=== PATIENT | male | born 1985 ===

== ENCOUNTER 2018-06-06 06:32 | Day surgery (SDC) | payer BC ==
--- NOTE | 2018-06-05 22:46 | PDGENHP ---
History and Physical - Chief Complaint RIGHT HIP PAIN - History of Present Illness 1. Bilateral~Femoroacetabular impingement (TYRELL) Cam type,~with~resultant labral tear(R>L) 2. Bilateral~Borderline Hip Dyplasia 3. 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 I have enjoyed meeting him.~Davina~lives in [place].~~[employer] as a financial services internship.~~He~is single;~davina~has no~children. ~Ritoenjoys hiking, tennis, backpacking and running. Tanmay's~bilateral~hip pain started a year ago, with~no~recalled trauma or injury , and with no~previous complaints. Ritohas~a known history of hip dysplasia. Presentation today is of~anterior,~groin~bilateral~hip pain(R>L). ~The hip~does not~wake him~at night and does~click and catch on him. Sitting~can be uncomfortable~for him.~Ritodoes~report suffering from lower back pain episodes. Ritohas~participated in physical therapy and has not~tried other conservative measures including chiropractic treatments and massage therapy.~Davina~has not~ received sufficient symptomatic improvement. Ritohas~utilized medication for pain management, including NSAID.~Ritohas used medication for 6~months. Ritounderstands that he~has a hip and pelvis problem which should be researched and wishes to get a better understanding of his~hip status, followed by an establishment of a treatment strategy, hoping he~would be able to get back to his~well being active life. History: Past medical history:~~ None which is relevant~ Relevant familial history:~None which is relevant~ Past surgical history:~ Jaw surgery Ritodenies problematic issues with general anesthesia in the past. I have reviewed, verified and agree with the past medical, surgical, family and social history. Current Medications:~has a current medication list which includes the following prescription(s): levothyroxine and multivitamin. ALLERGIES:~has No Known Allergies. Objective: Physical Examination: Ritois 6~feet 0~inches tall and weighs 185~Lbs. Tanmay~is AAO x3; he~is well- nourished, in NAD. Skin is warm and dry. ~Breathing is non-labored. ~CV with RRR by pulse. Abdomen is soft, NTND. Currently,~davina~walks with a normal~gait. Trendelenburg sign is~negative~and proprioception is reduced,~both~sides. He~presents with mild~signs of joint laxity. Beightons Score:~2 He~is fit looking. ~~ Lower spine examination is~negative~for sciatic or femoral nerve irritation with negative~SLR &~femoral stretch tests. Range of motion of the spine is normal~for flexion, extension, and rotations, with no~associated pain. Strength, Sensation and pulses are~normal -~bilaterally Ankles and knees exams are~normal~and no~mal-alignment is evident. He~has no leg length discrepancy. Thigh circumference is~symmetric~with no evidence for muscle atrophy~on both~ sides. Hip ROM (degrees): FL ER At 90~hip FL IR At 90~hip FL AB AD EX IR Neutral hip ER Neutral hip R 105 50 15 35 15 5 30 45 L 105 55 10 35 5 5 30 45 Specific hip and pelvis tests: Quadrant NAHUN Roll Add. Longus R +++ +++ Negative +++ L +++ +++ Negative + Glut. Med ITB Pos. Imp R Negative 5/5 strength Negative 5/5 strength Negative L Negative 5/5 strength Negative 5/5 strength Negative Squeeze test measured~normal Bony Symphysis pubis is~pain free~to touch while concentric activity of the rectus abdominis, does not~produce pain at its insertion. Ilio Psos specific tests are~negative for pain during cycling for~both hips~and remarkable for no snap. HF has~no pain on~~both hips. Anterior and lateral~capsule tenderness on both sides. Greater trochanteric burse is~pain free~on both hips. Piriformis tests: FAIR is~negative,~with no~local signs of neuritis related to sciatic nerve. SIJs examination is~normal~with normal~NAHNU in relation and local tenderness. Hamstrings tests are~negative~functional contraction and negative~tendinopathy both hips. On a daily basis, the following percentages reflect~Tanmay's overall total pain: Deep hip:~100% Imaging: Radiology studies which I have personally reviewed, analyzed and measured are below: XR: AP of the hip and pelvis: Performed in a~good~technique Coccyx to pubic symphysis distance~2~cm. 8~degrees caudal. [place] Lines are~preserved. No~Pathological signs are seen in the Symphysis Pubis. No~Pathological signs are seen at the Ischial tuberosity. ~ Specific measurements show: NSA~ LCE Sourcil~Angle Sharp's angle Lat. Cam Lat. Pincer C.Over~sign Head~Coverage % ATDmm R N 25 12 41 + - 12-1.00 81 N L N 24 10 39 + - 12-1.00 78 N Pos. wall sign ISS NAD ~~Dysplasia Comments R ++ Negative 10.5~mm + L ++ Negative 9.5~mm + Sclerosis Sup. Lat. OA Cysts Joint Space-WBZ Joint Space-Medial R Negative + Negative 6~mm 4.2~mm L Negative + Negative 6.7~mm 4~mm X Table lateral: Anterior cam lesion is~seen~on both hips. Alpha Angle: ~ Right~78~dergrees Left~79~degrees MRI - Good cartilage status, large labral tears both sides with para labral cyst. CT: Right hip: Lateral center edge angle: 25 degrees Anterior center edge angle: 52 degrees Equatorial acetabular version angle: 16 degrees anteverted. Cranial acetabular version angle: 0 degrees. Femoral neck shaft angle: 136 degrees Femoral neck version angle: 21 degrees anteverted. Right femoral torsion measures 11 degrees. Left hip: Lateral center edge angle: 23 degrees Anterior center edge angle: 59 degrees Equatorial acetabular version angle: 12 degrees anteverted. Cranial acetabular version angle: 6 degrees anteverted. Femoral neck shaft angle: 133 degrees Femoral neck version angle: 13 degrees anteverted. Left femoral torsion measures 0 degrees. Impression and plan:Sly Verasis a 32 y.o.~active male~suffering from symptomatic bilateral~hip pain due to ~Femoroacetabular impingement (TYRELL) Cam type,~with~resultant labral tear, ~Borderline Hip Dyplasia and Femoral Retrotorsion(Clinical)~causing significant disability to~him~and altering his~sport and life activities. Physical examination, imaging, and~his~story correspond with the diagnosis mentioned above. I explained that femoroacetabular impingement (TYRELL - Cam type) arises due to a bony or soft tissue conflict between the femur (ball) and acetabulum (socket) caused by an abnormality in the shape of the femoral head and neck. Over time, repetitive impingement can result in damage to the labrum and adjacent surface cartilage within the socket, ultimately giving rise to progressive osteoarthritis of the hip. I explained that hip dysplasia is a condition wherein the hip joint has excessive play~and instability due to a variety of factors, including the depth and adequacy of the socket, the orientation of the femur bone, and ligament laxity around the hip joint. Dysplasia ranges in severity from borderline to almas, with treatment options being specific to the specific nature of the problem. Left untreated, the instability in the hip joint can cause progressive tearing of the labrum and deterioration of the surface cartilage, ultimately resulting in progressive osteoarthritis of the hip. I explained that although a labral tear can be a source of pain, it is rarely the root of the problem and typically occurs secondary to an underlying abnormality in the shape and mechanics of the hip joint. I reviewed conservative treatment options for Dysplasia and TYRELL including activity modification to avoid positions of impingement or instability, physical therapy, non-steroidal anti-inflammatory medications, and various injections (corticosteroid and PRP) aimed at reducing inflammation in the hip joint or/and preventing dynamic instability and impingement. PRP injections may promote healing and reduce symptoms in certain cases but it will not repair chronically damaged tissue. Although these measures may help to buy time~and reduce current level of symptoms, they are not a definitive solution to the problem given the underlying abnormality in the shape of the hip joint. Patients who have failed conservative management and continue to experience symptoms are candidates for definitive surgical treatment, which may consist of hip arthroscopy alone or in combination with more invasive bony realignment procedures of the hip socket and/or femur called periacetabular osteotomy (NINI) or derotational femoral osteotomy (DFO). Hip arthroscopy typically includes treating the labrum with either repair or reconstruction of the torn labrum; as well as addressing the underlying abnormalities by restoring the normal shape to the hip joint. If the cartilage is damaged a Microfracture surgical procedure may also be necessary to help stimulate the growth of fibrocartilage. If a patient requires a labral reconstruction or a Microfracture, the initial rehabilitation from the surgery may take longer, but the director of strategic initiatives results are typically favorable. Tanmay~will review the info presented. Based on the available information~(MRI he has had recently and CT), Tanmay most likely will do well with hip arthroscopy alone. NINI would not be the first line of treatment in his case, being a male with no tissue laxity, relative retro-torsion of femur and LCE angles on the verge of normal values. I also talked about possible simultaneous bilateral hip arthroscopy. In order to obtain more detailed information regarding the alignment, orientation, and shape of the bony hip and pelvis I will order a CT scan to be performed. The results of the CT scan, including femoral torsion and acetabular version measured values and 3D images, will aid me in deciding on the best treatment strategy and surgical pre-planning. Tanmay~is going to contact us after completing his~imaging studies.~He is also going to work on getting the MRI CD to us. Tanmay~is happy with this plan. I have also supplied~him~with handouts~with our web site details and our contact info. I wish~Tanmay~all the best, ~~ Pawan Olsen MD History Information - Allergies/Home Medication List Allergies/Adverse Reactions: No Known Allergies Allergy (Verified 05/26/18 16:36) Home Medications: Adult One Daily Multivit Tab 05/26/18 [Last Taken Unknown] Levothyroxine [Synthroid 50 mcg (*)] 05/26/18 [Last Taken Unknown] valACYclovir PRN 05/26/18 [Last Taken Unknown] I have personally reviewed and updated: medical history - Social History Smoking Status: Former smoker Review of Systems Review of Systems: Physical Exam Physical Exam:
[2018-06-06] MEDS ORDERED: PREGABALIN 150 MG CAP PO ONE (07:08)
[2018-06-06] MEDS ORDERED: ceFAZolin 2 GM/DEXTROSE 100 ML IV ONE (07:08)
[2018-06-06] MEDS ORDERED: ACETAMINOPHEN 500 MG TAB PO ONE (07:08)
[2018-06-06] MEDS ORDERED: LIDOCAINE 1% 2 ML INJ ID PRN (07:22)
[2018-06-06] MEDS ORDERED: LR 1,000 ML IV ONE (07:22)
[2018-06-06] MEDS ORDERED: EPINEPHrine 30 MG/30 ML MDV (0.1 MG/0.1 ML) ONE (08:22)
[2018-06-06] MEDS ORDERED: BUPIVACAINE/EPI 0.25% 30 ML SDV ONE (08:22)
[2018-06-06] MEDS ORDERED: NALOXONE HCL 0.4 MG/ML INJ IVP PRN ×2 (09:01→15:15)
[2018-06-06] MEDS ORDERED: PROMETHAZINE HCL 25 MG/ML INJ IVP PRN ×2 (09:01→15:15)
[2018-06-06] MEDS ORDERED: ALBUTEROL 3 ML DEYVIAL IH PRN ×2 (09:01→15:15)
[2018-06-06] MEDS ORDERED: ONDANSETRON 4 MG/2 ML VIAL IVP PRN ×2 (09:01→15:15)
[2018-06-06] MEDS ORDERED: HYDROmorphONE/DILAUDID 2 MG/ML INJ IVP PRN ×2 (09:01→15:15)
[2018-06-06] MEDS ORDERED: HYDROCODONE/APAP 5/325 TAB PO PRN (09:01)
--- NOTE | 2018-06-06 09:03 | PDANEPAE ---
ANE History of Present Illness R Hip ANE Past Medical History - Cardiovascular History Hx Hypertension: No Hx Arrhythmias: No Hx Chest Pain: No Hx Coronary Artery / Peripheral Vascular Disease: No Hx CHF / Valvular Disease: No Hx Palpitations: No - Pulmonary History Hx COPD: No Hx Asthma/Reactive Airway Disease: No Hx Recent Upper Respiratory Infection: No Hx Oxygen in Use at Home: No Hx Sleep Apnea: No Sleep Apnea Screening Result - Last Documented: Negative - Neurologic History Hx Cerebrovascular Accident: No Hx Seizures: No Hx Dementia: No - Endocrine History Hx Diabetes: Yes Endocrine History Comment: hypothyroid - Renal History Hx Renal Disorders: No - Liver History Hx Hepatic Disorders: No - Neurological & Psychiatric Hx Hx Neurological and Psychiatric Disorders: No - Cancer History Hx Cancer: No - Congenital Disorder History Hx Congenital Disorders: No - GI History Hx Gastrointestinal Disorders: No - Other Health History Other Health History: wears glasses/contacts - Chronic Pain History Chronic Pain: No - Surgical History Prior Surgeries: left hip arthroscopy femoplasty 2017. jaw surgery, age 17 ANE Review of Systems Review of Systems: - Exercise capacity METS (RN): 6 METS ANE Patient History - Allergies Allergies/Adverse Reactions: No Known Allergies Allergy (Verified 05/26/18 16:36) - Home Medications Home Medications: Adult One Daily Multivit Tab 05/26/18 [Last Taken 05/27/18] Levothyroxine [Synthroid 50 mcg (*)] 05/26/18 [Last Taken 06/04/18] valACYclovir PRN 05/26/18 [Last Taken 06/03/18] - NPO status NPO Since - Liquids (Date): 06/06/18 NPO Since - Liquids (Time): 03:30 NPO Since - Solids (Date): 06/05/18 NPO Since - Solids (Time): 20:30 - Smoking Hx Smoking Status: Former smoker - Family Anes Hx Family Hx Anesthesia Complications: none ANE Labs/Vital Signs - Vital Signs Blood Pressure: 107/72 Heart Rate: 51 Respiratory Rate: 18 O2 Sat (%): 20 Height: 180.34 cm Weight: 83.915 kg ANE Physical Exam - Airway Neck exam: FROM Mallampati Score: Class 2 Mouth exam: normal dental/mouth exam - Pulmonary Pulmonary: clear to auscultation - Cardiovascular Cardiovascular: regular rate and rhythym - ASA Status ASA Status: I ANE Anesthesia Plan Anesthesia Plan: GA w LMA
[2018-06-06] MEDS ORDERED: fentaNYL 100 MCG/2 ML INJ ONE ×3 (09:08→13:56)
[2018-06-06] MEDS ORDERED: ROCURONIUM 50 MG/5 ML VIAL ONE ×2 (09:09→11:00)
[2018-06-06] MEDS ORDERED: PROPOFOL 200 MG/20 ML VIAL ONE (09:09)
[2018-06-06] MEDS ORDERED: LIDOCAINE 2% 5 ML SDV ONE (09:10)
[2018-06-06] MEDS ORDERED: DEXAMETHASONE 4 MG/ML VIAL ONE ×2 (09:25)
[2018-06-06] MEDS ORDERED: ONDANSETRON 4 MG/2 ML VIAL ONE ×2 (09:25→14:23)
[2018-06-06] MEDS ORDERED: ePHEDrine SULFATE 25 MG/5 ML SYR ONE (09:38)
[2018-06-06] MEDS ORDERED: ceFAZolin 1 GM VIAL ONE ×2 (13:08→13:09)
[2018-06-06] MEDS ORDERED: LR 500 ML IV PRN (15:15)
[2018-06-06] MEDS ORDERED: fentaNYL 100 MCG/2 ML INJ IVP PRN (15:15)
[2018-06-06] MEDS ORDERED: SUGAMMADEX SODIUM 200 MG/2 ML VIAL IVP ONE (15:17)
[2018-06-06] MEDS ORDERED: KETOROLAC 30 MG/1 ML SDV ONE (15:35)
[2018-06-06] MEDS ORDERED: HYDROmorphONE/DILAUDID 2 MG/ML INJ ONE (15:40)
--- NOTE | 2018-06-06 15:59 | POSTOPPROG ---
Post Op Note Date of Operation: 06/06/18 Surgeon: Rob Shea Director Of Teenage Activities: Dr. Carlson Pre-op Diagnosis: RIGHT TYRELL Post-op Diagnosis: RIGHT TYRELL Procedure: Right Hip Arthroscopy Inf/Abcess present in the surg proc area at time of surgery?: No
--- NOTE | 2018-06-06 16:11 | POSTANESTH ---
Post Anesthetic Evaluation Cardiovascular Status: Normal, Stable Respiratory Status: Normal, Stable Level of Consciousness/Mental Status: Can Participate in Eval Pain Control: Adequate, Prn Tx Ordered Nausea/Vomiting Control: Adequate, Prn Tx Ordered Complications Possibly Related to Anesthesia: None Noted
[2018-06-06] MEDS ORDERED: oxyCODONE IR 5 MG TAB PO PRN (16:24)
[2018-06-06] MEDS ORDERED: oxyCODONE IR 5 MG TAB ONE (17:48)
[2018-06-06 18:07] VITALS: BP 133/87
== END 2018-06-06 18:31 | disposition home or self-care (01) ==
LOC: FSGY 06:32
PROVIDERS: ATTEND Orthopaedic Surgery Sports Medicine
PROC: 0SQ94ZZ Repair Right Hip Joint, Percutaneous Endoscopic Approach (ICD-10-PCS; principal; 2018-06-06 08:30)
PROC: 0QQ64ZZ Repair Right Upper Femur, Percutaneous Endoscopic Approach (ICD-10-PCS; principal; 2018-06-06 08:30)
DX: Q65.89 Other specified congenital deformities of hip (principal); M76.891 Other specified enthesopathies of right lower limb, excluding foot; M94.8X1 Other specified disorders of cartilage, shoulder; E03.9 Hypothyroidism, unspecified
CPT/HCPCS: C1713; J0171; J0690; J1100; J1170; J1885; J2405; J2704; J3010